=== PATIENT | female | born 1970 | race Caucasian/White ===

== ENCOUNTER 2019-04-18 09:32 | Emergency (ER) | payer OTHER ==
[2019-04-18] MEDS: IBUPROFEN 800 MG TAB PO (10:30)
[2019-04-18] MEDS: BENZONATATE 100 MG CAP PO (10:30)
== END 2019-04-18 11:40 | disposition home or self-care (01) ==
LOC: E/R 09:32
DX: J06.9 Acute upper respiratory infection, unspecified (principal); E11.9 Type 2 diabetes mellitus without complications; R07.9 Chest pain, unspecified; Z79.84 Long term (current) use of oral hypoglycemic drugs
CPT/HCPCS: 71045; 81025; 93005; 99284-25